=== PATIENT | male | born 1985 | race Caucasian/White ===

== ENCOUNTER 2022-08-26 09:18 | Emergency (ER) | payer BC, OTHER ==
[2022-08-26] MEDS ORDERED: Sodium Chloride 0.9% 10 ML Syringe FLUSH PRN (09:25)
[2022-08-26 09:45] VITALS: BP 134/89; PULSE 42
[2022-08-26] MEDS ORDERED: Ketorolac 30 MG/ML SDV IVPUSH ONE (09:50)
[2022-08-26] MEDS ORDERED: Sodium Chloride 0.9% 1,000 ML IV ONE (09:50)
[2022-08-26] MEDS ORDERED: Ondansetron 4 MG/2 ML SDV IVPUSH ONE (09:50)
[2022-08-26] MEDS ORDERED: Tamsulosin 0.4 MG Cap.ER PO ONE (10:29)
== END 2022-08-26 11:20 | disposition home or self-care (01) ==
LOC: JP.ED 09:18
DX: N20.0 Calculus of kidney (principal)
CPT/HCPCS: 96361; 96374; 96375; 99283; A9270; J1885; J2405; J3490; J7030